=== PATIENT | female | born 1985 | race Caucasian/White ===

== ENCOUNTER 2019-06-20 02:09 | Emergency (ER) | payer OTHER, SELFPAY ==
[2019-06-20 02:17] VITALS: BP 173/102; PULSE 106; RESP 18; TEMP 36.4; O2SAT 98; BMI 49.6
--- NOTE | 2019-06-20 02:31 | ED_ITS ---
Entered by Krupa Valentino, acting as scribe for Darrell Mejia DO Documented by User: Shelbi Kay MD 06/20/19 08:09 HPI - Chest Pain General: Chief Complaint: Chest Pain Stated Complaint: CHEST PAIN/SOB Time Seen by Provider: 06/20/19 02:32 [facility] ED PFSH: Statuses (acute, chronic, etc) shown below reflect problem list status as previously entered and may not be historically accurate Social History Smoking and tobacco status: current every day smoker Course Vital Signs: Vital signs: Vital Signs Temperature 97.6 F 06/20/19 02:17 Pulse Rate 100 06/20/19 07:56 Respiratory Rate 20 H 06/20/19 07:56 Blood Pressure 163/113 06/20/19 03:55 Pulse Oximetry 99 06/20/19 07:56 MDM - Chest Pain MDM Narrative: Medical decision making narrative: Patient presents here with chest pain that is likely anxiety attack. I took patient over from Dr. Mejia and CT scan here is negative for PE. Patient has no signs of pulmonary edema. She feels improved and is well-appearing here. She is stable for discharge is return if worsening. Lab Data: Labs: Lab Results 06/20/19 06/20/19 06/20/19 Range/Units 02:48 02:48 02:48 WBC 11.4 H (4.0-10.0) 10^3/ uL RBC 4.77 (4.1-5.3) 10^6/u L Hgb 9.1 L (11.5-15.3) g/dL Hct 31.8 L (37.0-47.0) % MCV 66.7 L (81-99) fL MCH 19.1 L (28.0-34.0) pg MCHC 28.6 L (30.0-36.0) g/dL RDW 15.9 H (12.1-15.1) % Plt Count 604 H (130-400) 10^3/c mm MPV 9.1 (7.4-10.4) fL Neut % (Auto) 58.4 % Lymph % (Auto) 32.4 % [place] % (Auto) 6.0 % Eos % (Auto) 2.3 % Baso % (Auto) 0.4 % Neut # (Auto) 6.6 (1.8-7.7) 10^3/u L Lymph # (Auto) 3.7 (0.8-4.8) 10^3/u L [place] # (Auto) 0.7 (0.2-0.9) 10^3/u L Eos # (Auto) 0.3 (0.0-0.8) 10^3/u L Baso # (Auto) 0.1 (0.0-0.1) 10^3/u L Nucleated RBC % (a uto) 0 % Nucleated RBCs # 0.0 /100WBC D-Dimer 0.30 (0-0.59) ug/mIFE U Sodium 137 (136-145) mmol/L Potassium 4.0 (3.5-5.1) mmol/L Chloride 100 (98-107) mmol/L Carbon Dioxide 26 (22-29) mmol/L Anion Gap 15.0 (5-19) BUN 9 (6-20) mg/dL Creatinine 0.7 (0.5-0.9) mg/dL GFR Calculation 97.0 (90-130) mL/min Glucose 114 H (74-109) mg/dL Calcium 9.3 (8.5-10.5) mg/dL Total Bilirubin 0.2 (0.15-1.2) mg/dL AST 15 (0-32) U/L ALT 18 (0-33) U/L Alkaline Phosphata se 90 (35-105) IU/L Troponin T Baselin e (0-10) ng/mL Troponin T 120 Min [place] (0-10) ng/mL Delta Troponin T (0-10) ABS# NT-Pro-B Natriuret Pep (0-125) pg/mL Total Protein 7.5 (6.6-8.7) g/dL Albumin 3.5 (3.5-5.2) g/dL Globulin 4.0 (1.3-4.6) g/dL HCG, Qual (Negative) 06/20/19 06/20/19 06/20/19 Range/Units 02:48 02:48 05:06 WBC (4.0-10.0) 10^3/ uL RBC (4.1-5.3) 10^6/u L Hgb (11.5-15.3) g/dL Hct (37.0-47.0) % MCV (81-99) fL MCH (28.0-34.0) pg MCHC (30.0-36.0) g/dL RDW (12.1-15.1) % Plt Count (130-400) 10^3/c mm MPV (7.4-10.4) fL Neut % (Auto) % Lymph % (Auto) % [place] % (Auto) % Eos % (Auto) % Baso % (Auto) % Neut # (Auto) (1.8-7.7) 10^3/u L Lymph # (Auto) (0.8-4.8) 10^3/u L [place] # (Auto) (0.2-0.9) 10^3/u L Eos # (Auto) (0.0-0.8) 10^3/u L Baso # (Auto) (0.0-0.1) 10^3/u L Nucleated RBC % (a uto) % Nucleated RBCs # /100WBC D-Dimer (0-0.59) ug/mIFE U Sodium (136-145) mmol/L Potassium (3.5-5.1) mmol/L Chloride (98-107) mmol/L Carbon Dioxide (22-29) mmol/L Anion Gap (5-19) BUN (6-20) mg/dL Creatinine (0.5-0.9) mg/dL GFR Calculation (90-130) mL/min Glucose (74-109) mg/dL Calcium (8.5-10.5) mg/dL Total Bilirubin (0.15-1.2) mg/dL AST (0-32) U/L ALT (0-33) U/L Alkaline Phosphata se (35-105) IU/L Troponin T Baselin e 6 (0-10) ng/mL Troponin T 120 Min [place] 6.00 (0-10) ng/mL Delta Troponin T 0 (0-10) ABS# NT-Pro-B Natriuret Pep (0-125) pg/mL Total Protein (6.6-8.7) g/dL Albumin (3.5-5.2) g/dL Globulin (1.3-4.6) g/dL HCG, Qual Negative (Negative) 02/02/20 Range/Units 05:06 WBC (4.0-10.0) 10^3/ uL RBC (4.1-5.3) 10^6/u L Hgb (11.5-15.3) g/dL Hct (37.0-47.0) % MCV (81-99) fL MCH (28.0-34.0) pg MCHC (30.0-36.0) g/dL RDW (12.1-15.1) % Plt Count (130-400) 10^3/c mm MPV (7.4-10.4) fL Neut % (Auto) % Lymph % (Auto) % [place] % (Auto) % Eos % (Auto) % Baso % (Auto) % Neut # (Auto) (1.8-7.7) 10^3/u L Lymph # (Auto) (0.8-4.8) 10^3/u L [place] # (Auto) (0.2-0.9) 10^3/u L Eos # (Auto) (0.0-0.8) 10^3/u L Baso # (Auto) (0.0-0.1) 10^3/u L Nucleated RBC % (a uto) % Nucleated RBCs # /100WBC D-Dimer (0-0.59) ug/mIFE U Sodium (136-145) mmol/L Potassium (3.5-5.1) mmol/L Chloride (98-107) mmol/L Carbon Dioxide (22-29) mmol/L Anion Gap (5-19) BUN (6-20) mg/dL Creatinine (0.5-0.9) mg/dL GFR Calculation (90-130) mL/min Glucose (74-109) mg/dL Calcium (8.5-10.5) mg/dL Total Bilirubin (0.15-1.2) mg/dL AST (0-32) U/L ALT (0-33) U/L Alkaline Phosphata se (35-105) IU/L Troponin T Baselin e (0-10) ng/mL Troponin T 120 Min [place] (0-10) ng/mL Delta Troponin T (0-10) ABS# NT-Pro-B Natriuret Pep 78 (0-125) pg/mL Total Protein (6.6-8.7) g/dL Albumin (3.5-5.2) g/dL Globulin (1.3-4.6) g/dL HCG, Qual (Negative) Imaging Data^: CT Chest: Radiologist's impression: PROCEDURE INFORMATION: Exam: CT Angiography Chest With Contrast Exam date and time: 06/20/2019 6:54 AM Age: 34 years old Clinical indication: Shortness of breath; Prior surgery; Surgery type: Gb. Lapband; Patient HX: Central chest pain with SOB. Hypertensive; Additional info: Shob TECHNIQUE: Imaging protocol: Computed tomographic angiography of the chest with intravenous contrast. 3D rendering: MIP and/or 3D reconstructed images were created by the technologist. Total DLP: 855.11 mGy-cm Radiation optimization: All CT scans at this facility use at least one of these dose optimization techniques: automated exposure control; mA and/or kV adjustment per patient size (includes targeted exams where dose is matched to clinical indication); or iterative reconstruction. Contrast material: OMNI 350; Contrast volume: 69 ml; Contrast route: 20G; COMPARISON: CR XR chest 1V portable [id number] 06/20/2019 3:12 AM FINDINGS: Pulmonary arteries: No dissection. No visualized embolism as characterized to the most proximal segmental level. Consider alternative form of imaging if indicated. Aorta: Unremarkable. No aortic aneurysm. No aortic dissection. Lungs: Lungs are well aerated without a focal area of consolidation. Pleural space: Unremarkable. No pneumothorax. No pleural effusion. Heart: No pericardial effusion Mediastinum: Soft tissues of the mediastinum appear unremarkable. Liver: Mild nodularity of the liver is present. Correlate regarding risk factors for hepatocellular disease. Stomach and bowel: Prior gastric banding. Lymph nodes: Unremarkable. No enlarged lymph nodes. Bones/joints: Unremarkable. No acute fracture. Soft tissues: Unremarkable. Other findings: thoracic inlet is unremarkable. CT/CT angio chest PE protcl [id number] IMPRESSION: 1. No dissection. No visualized embolism as characterized to the most proximal segmental level. Consider alternative form of imaging if indicated. 2. Prior gastric banding. 3. Mild nodularity of the liver is present. Correlate regarding risk factors for hepatocellular disease. 4. Lungs are well aerated without a focal area of consolidation. Discharge Plan Discharge Patient Disposition: Home, Self-Care Clinical Impression: Chest pain Qualifiers: Chest pain type: unspecified Qualified Code(s): R07.9 - Chest pain, unspecified Condition: Stable Prescriptions: No Action No Known Home Medications RF: 0 Discharge Orders: Discharge Order (Routine); Ordered 06/20/19 Ordered By: Shelbi Kay Referrals: Varun Astudillo PA [Primary Care Provider] - 4-7 days Discharge Diet: Advance as tolerated Discharge Activity: Resume usual activity Patient Instructions: Chest Pain (ED) Discharge Date/Time: 06/20/19 08:02 Coding Level of Care Code ED Director Pediatric for Chg Fwd Documented by User: Darrell Mejia, 06/20/19 20:07 HPI - Chest Pain General: Chief Complaint: Chest Pain Stated Complaint: CHEST PAIN/SOB Time Seen by Provider: 06/20/19 02:32 Source: patient and family Mode of arrival: ambulatory History of Present Illness: HPI narrative: 34 y/o female presents to the ED with complaint of chest pain. Pt states her pain has subsided upon [place] [facility] [place] Pt states she has hx of anxiety and reports having increased stress in her life recently. Pt reports chest heaviness and SOB during the episode. Pt is just getting over cough, N/V that her children exposed her to. MD complaint: chest pain Onset (ago): hour(s) Timing of current episode: episodic and now resolved Prior episodes: Yes Quality: heaviness Exacerbating factors: stress Context: other (increased stress) Associated symptoms: Reports dyspnea; Deny abdominal pain, fever(s), nausea, palpitations or vomiting Review of Systems Const: Denies: fever or chills Eyes: Denies: change in vision or blurry vision ENMT: Denies: painful swallowing, swelling of lips/tongue, bleeding gums, dental pain, Change in hearing, nose bleeds, post nasal drip or facial/sinus pain Card: Reports: chest pain; Denies: palpitations, edema, swelling of feet/ankles or shortness of breath when lying down Resp: Reports: shortness of breath; Denies: productive cough, non-productive cough or wheezing GI: Denies: abdominal pain, nausea, vomiting, rectal pain, blood in stool or black tarry stool : Denies: painful urination, urinary frequency, urinary urgency or blood in urine Musc: Denies: neck pain, back pain, redness or joint warmth Skin/Breast: Denies: rash, itching or redness Neuro: Denies: headache, dizziness, vertigo, confusion or seizure-like activity Psych: Reports: anxiety and panic attacks; Denies: visual hallucinations or auditory hallucinations PFSH ED PFSH: Statuses (acute, chronic, etc) shown below reflect problem list status as previously entered and may not be historically accurate Social History Smoking and tobacco status: current every day smoker Physical Exam Const: GENERAL APPEARANCE: well developed ORIENTATION/CONSCIOUSNESS: Yes oriented to person, Yes oriented to place and Yes oriented to time HENMT: COMMON NORMALS: normocephalic, external ears normal and external nose normal HEAD & SCALP: normocephalic; no scalp tenderness FACE & SINUS: normal facial exam NOSE: external nose normal and no nasal discharge EXTERNAL EAR: Yes external ears normal MOUTH: tongue normal TEETH & GINGIVA: no abnormal tooth and associated gingiva THROAT: posterior oropharynx normal; no peritonsillar mass Eye: COMMON NORMALS: PERRL, EOMs intact bilaterally and conjunctivae normal EYELID: eyelids normal CONJUNCTIVA: Yes conjunctivae normal PUPIL: Yes PERRL Neck/C-Spine: COMMON NORMALS: full ROM GENERAL: No tracheal deviation CERVICAL SPINE: Yes normal cervical lordosis and No cervical spine tenderness Chest: CHEST: Yes tenderness clavicle on the left Resp: COMMON NORMALS: clear to auscultation bilaterally EFFORT & INSPECTION: No tachypneic, No respiratory distress, No retractions, No uses accessory muscles and No tracheal deviation AUSCULTATION: clear to auscultation bilaterally, no rhonchi, no wheezes and lung sounds not diminished Cardio: RATE: tachycardic HEART SOUNDS: no murmurs PERIPHERAL PULSES: radial pulses present GI: INSPECTION: No abdominal distension AUSCULTATION: No hyperactive bowel sounds and No hypoactive bowel sounds PALPATION: No guarding and No rigid PERCUSSION: no dullness to percussion and no tympanic to percussion : COMMON NORMALS: Yes no CVA tenderness BLADDER/KIDNEY EXAM: Yes no CVA tenderness Back/Pelvis: COMMON NORMALS: no CVA tenderness Neuro: SENSORIUM/ORIENTATION: Yes oriented to person, Yes oriented to place and Yes oriented to time Psych: COMMON NORMALS: mental status grossly normal Skin: COMMON NORMALS: no rashes or lesions noted GENERAL SKIN EXAM: no rashes or lesions noted Course ED course: 34-year-old female presents with significant chest discomfort. She was given a milligram of Ativan as she was anxious. Her chest discomfort was taken away, but she was mildly sedated, and became mildly apneic following. She was placed on oxygen for a couple of hours with improvement in her mental status and apnea as the Ativan wore off. Because of persistent tachycardia, chest discomfort, and hypoxia, CTA was ordered. Because of her body habitus, chest x- ray was inconclusive. She was checked out to Dr. Kay at shift change for results. Vital Signs: Vital signs: Vital Signs Temperature 97.6 F 06/20/19 02:17 Pulse Rate 100 06/20/19 07:56 Respiratory Rate 20 H 06/20/19 07:56 Blood Pressure 163/113 06/20/19 03:55 Pulse Oximetry 99 06/20/19 07:56 MDM - Chest Pain Lab Data: Labs: Lab Results 06/20/19 06/20/19 06/20/19 Range/Units 02:48 02:48 02:48 WBC 11.4 H (4.0-10.0) 10^3/ uL RBC 4.77 (4.1-5.3) 10^6/u L Hgb 9.1 L (11.5-15.3) g/dL Hct 31.8 L (37.0-47.0) % MCV 66.7 L (81-99) fL MCH 19.1 L (28.0-34.0) pg MCHC 28.6 L (30.0-36.0) g/dL RDW 15.9 H (12.1-15.1) % Plt Count 604 H (130-400) 10^3/c mm MPV 9.1 (7.4-10.4) fL Neut % (Auto) 58.4 % Lymph % (Auto) 32.4 % [place] % (Auto) 6.0 % Eos % (Auto) 2.3 % Baso % (Auto) 0.4 % Neut # (Auto) 6.6 (1.8-7.7) 10^3/u L Lymph # (Auto) 3.7 (0.8-4.8) 10^3/u L [place] # (Auto) 0.7 (0.2-0.9) 10^3/u L Eos # (Auto) 0.3 (0.0-0.8) 10^3/u L Baso # (Auto) 0.1 (0.0-0.1) 10^3/u L Nucleated RBC % (a uto) 0 % Nucleated RBCs # 0.0 /100WBC D-Dimer 0.30 (0-0.59) ug/mIFE U Sodium 137 (136-145) mmol/L Potassium 4.0 (3.5-5.1) mmol/L Chloride 100 (98-107) mmol/L Carbon Dioxide 26 (22-29) mmol/L Anion Gap 15.0 (5-19) BUN 9 (6-20) mg/dL Creatinine 0.7 (0.5-0.9) mg/dL GFR Calculation 97.0 (90-130) mL/min Glucose 114 H (74-109) mg/dL Calcium 9.3 (8.5-10.5) mg/dL Total Bilirubin 0.2 (0.15-1.2) mg/dL AST 15 (0-32) U/L ALT 18 (0-33) U/L Alkaline Phosphata se 90 (35-105) IU/L Troponin T Baselin e (0-10) ng/mL Troponin T 120 Min [place] (0-10) ng/mL Delta Troponin T (0-10) ABS# NT-Pro-B Natriuret Pep (0-125) pg/mL Total Protein 7.5 (6.6-8.7) g/dL Albumin 3.5 (3.5-5.2) g/dL Globulin 4.0 (1.3-4.6) g/dL HCG, Qual (Negative) 06/20/19 06/20/19 06/20/19 Range/Units 02:48 02:48 05:06 WBC (4.0-10.0) 10^3/ uL RBC (4.1-5.3) 10^6/u L Hgb (11.5-15.3) g/dL Hct (37.0-47.0) % MCV (81-99) fL MCH (28.0-34.0) pg MCHC (30.0-36.0) g/dL RDW (12.1-15.1) % Plt Count (130-400) 10^3/c mm MPV (7.4-10.4) fL Neut % (Auto) % Lymph % (Auto) % [place] % (Auto) % Eos % (Auto) % Baso % (Auto) % Neut # (Auto) (1.8-7.7) 10^3/u L Lymph # (Auto) (0.8-4.8) 10^3/u L [place] # (Auto) (0.2-0.9) 10^3/u L Eos # (Auto) (0.0-0.8) 10^3/u L Baso # (Auto) (0.0-0.1) 10^3/u L Nucleated RBC % (a uto) % Nucleated RBCs # /100WBC D-Dimer (0-0.59) ug/mIFE U Sodium (136-145) mmol/L Potassium (3.5-5.1) mmol/L Chloride (98-107) mmol/L Carbon Dioxide (22-29) mmol/L Anion Gap (5-19) BUN (6-20) mg/dL Creatinine (0.5-0.9) mg/dL GFR Calculation (90-130) mL/min Glucose (74-109) mg/dL Calcium (8.5-10.5) mg/dL Total Bilirubin (0.15-1.2) mg/dL AST (0-32) U/L ALT (0-33) U/L Alkaline Phosphata se (35-105) IU/L Troponin T Baselin e 6 (0-10) ng/mL Troponin T 120 Min [place] 6.00 (0-10) ng/mL Delta Troponin T 0 (0-10) ABS# NT-Pro-B Natriuret Pep (0-125) pg/mL Total Protein (6.6-8.7) g/dL Albumin (3.5-5.2) g/dL Globulin (1.3-4.6) g/dL HCG, Qual Negative (Negative) 06/20/19 Range/Units 05:06 WBC (4.0-10.0) 10^3/ uL RBC (4.1-5.3) 10^6/u L Hgb (11.5-15.3) g/dL Hct (37.0-47.0) % MCV (81-99) fL MCH (28.0-34.0) pg MCHC (30.0-36.0) g/dL RDW (12.1-15.1) % Plt Count (130-400) 10^3/c mm MPV (7.4-10.4) fL Neut % (Auto) % Lymph % (Auto) % [place] % (Auto) % Eos % (Auto) % Baso % (Auto) % Neut # (Auto) (1.8-7.7) 10^3/u L Lymph # (Auto) (0.8-4.8) 10^3/u L [place] # (Auto) (0.2-0.9) 10^3/u L Eos # (Auto) (0.0-0.8) 10^3/u L Baso # (Auto) (0.0-0.1) 10^3/u L Nucleated RBC % (a uto) % Nucleated RBCs # /100WBC D-Dimer (0-0.59) ug/mIFE U Sodium (136-145) mmol/L Potassium (3.5-5.1) mmol/L Chloride (98-107) mmol/L Carbon Dioxide (22-29) mmol/L Anion Gap (5-19) BUN (6-20) mg/dL Creatinine (0.5-0.9) mg/dL GFR Calculation (90-130) mL/min Glucose (74-109) mg/dL Calcium (8.5-10.5) mg/dL Total Bilirubin (0.15-1.2) mg/dL AST (0-32) U/L ALT (0-33) U/L Alkaline Phosphata se (35-105) IU/L Troponin T Baselin e (0-10) ng/mL Troponin T 120 Min [place] (0-10) ng/mL Delta Troponin T (0-10) ABS# NT-Pro-B Natriuret Pep 78 (0-125) pg/mL Total Protein (6.6-8.7) g/dL Albumin (3.5-5.2) g/dL Globulin (1.3-4.6) g/dL HCG, Qual (Negative) Discharge Plan Discharge Patient Disposition: Home, Self-Care Clinical Impression: Chest pain Qualifiers: Chest pain type: unspecified Qualified Code(s): R07.9 - Chest pain, unspecified Condition: Stable Prescriptions: No Action No Known Home Medications RF: 0 Discharge Orders: Discharge Order (Routine); Ordered 06/20/19 Ordered By: Shelbi Kay Referrals: Varun Astudillo PA [Primary Care Provider] - 4-7 days Discharge Diet: Advance as tolerated Discharge Activity: Resume usual activity Patient Instructions: Chest Pain (ED) Discharge Date/Time: 06/20/19 08:02 Coding Level of Care Code ED Director Pediatric for g Alea The documentation recorded by the Chicho goldberg Ashley, accurately reflects the service I personally performed and the decisions made by Roberto berger Jeremy John, DO Jun 20, 2019 02:09
--- NOTE | 2019-06-20 02:42 | ECG_ITS ---
Measurements Intervals [place] Rate: 102 P: 38 UT: 151 QRS: 21 QRSD: 78 T: 7 QT: 312 QTc: 408 SINUS TACHYCARDIA ABNORMAL RHYTHM ECG No previous ECG available for comparison Electronically Signed On 06-20-2019 15:43:23 MACHINE TOOL BUILDER by Corine Persaud M.D. [id number] f
--- NOTE | 2019-06-20 02:42 | XRR_ITS ---
PROCEDURE INFORMATION: Exam: XR Chest, 1 View Exam date and time: 06/20/2019 3:21 AM Age: 34 years old Clinical indication: Chest pain; Prior surgery; Surgery date: 6+ months; Surgery type: Lap band, gb; Additional info: Cp TECHNIQUE: Imaging protocol: XR of the chest Views: 1 view. COMPARISON: No relevant prior studies available. FINDINGS: Lungs: Lungs are well aerated without a focal area of consolidation. Pleural space: Unremarkable. No pleural effusion. No pneumothorax. Heart/Mediastinum: Cardiac silhouette is enlarged. Bones/joints: Unremarkable. XR/XR chest 1V portable [id number] IMPRESSION: Lungs are well aerated without a focal area of consolidation.
[2019-06-20 03:00] LABS: Basophils # 0.1 10^3/uL (0.0-0.1); Basophils % 0.4 %; Eosinophils # 0.3 10^3/uL (0.0-0.8); Eosinophils % 2.3 %; Hematocrit 31.8 % (37.0-47.0); Hemoglobin 9.1 g/dL (11.5-15.3); Lymphocytes # 3.7 10^3/uL (0.8-4.8); Lymphocytes % 32.4 %; Mean Corpuscular HGB Conc 28.6 g/dL (30.0-36.0); Mean Corpuscular Hemoglobin 19.1 pg (28.0-34.0); Mean Corpuscular Volume 66.7 fL (81-99); Mean Platelet Volume 9.1 fL (7.4-10.4); Monocytes # 0.7 10^3/uL (0.2-0.9); Neutrophils # 6.6 10^3/uL (1.8-7.7); Neutrophils % 58.4 %; Nucleated Red Blood Cells % 0 %; Platelet Count 604 10^3/cmm (130-400); Red Blood Count 4.77 10^6/uL (4.1-5.3); Red Cell Distribution Width 15.9 % (12.1-15.1); White Blood Count 11.4 10^3/uL (4.0-10.0)
[2019-06-20] MEDS: LORazepam 2 mg/mL INJ 1 mL 1 MG IVP (03:07)
[2019-06-20 03:21] LABS: HCG, Serum Qual Negative (Negative)
[2019-06-20 03:34] LABS: Alanine Aminotransferase 18 U/L (0-33); Albumin Level 3.5 g/dL (3.5-5.2); Alkaline Phosphatase 90 IU/L (35-105); Aspartate Amino Transferase 15 U/L (0-32); Blood Urea Nitrogen 9 mg/dL (6-20); Calcium 9.3 mg/dL (8.5-10.5); Carbon Dioxide 26 mmol/L (22-29); Chloride 100 mmol/L (98-107); Creatinine Clr Calc Pharmacy 149.7987; Glucose 114 mg/dL (74-109); Sodium 137 mmol/L (136-145); Total Bilirubin 0.2 mg/dL (0.15-1.2); Total Protein 7.5 g/dL (6.6-8.7)
[2019-06-20 03:37] LABS: Troponin(5th) Baseline 6 ng/mL (0-10)
[2019-06-20 03:55] VITALS: BP 163/113; PULSE 103; RESP 22
--- NOTE | 2019-06-20 04:42 | ECG_ITS ---
Measurements Intervals [place] Rate: 103 P: 44 WV: 136 QRS: 30 QRSD: 84 T: -3 QT: 330 QTc: 434 SINUS TACHYCARDIA NONSPECIFIC T-WAVE ABNORMALITY ABNORMAL RHYTHM ECG No previous ECG available for comparison Electronically Signed On 06-20-2019 20:31:49 [employer]EL[employer] RESEARCH SCIENTIST by Corine Persaud M.D. [id number] f
[2019-06-20 05:39] LABS: Troponin 5 2HR Delta 0 ABS# (0-10)
--- NOTE | 2019-06-20 06:09 | CTR_ITS ---
PROCEDURE INFORMATION: Exam: CT Angiography Chest With Contrast Exam date and time: 06/20/2019 6:54 AM Age: 34 years old Clinical indication: Shortness of breath; Prior surgery; Surgery type: Gb. Lapband; Patient HX: Central chest pain with SOB. Hypertensive; Additional info: Shob TECHNIQUE: Imaging protocol: Computed tomographic angiography of the chest with intravenous contrast. 3D rendering: MIP and/or 3D reconstructed images were created by the technologist. Total DLP: 855.11 mGy-cm Radiation optimization: All CT scans at this facility use at least one of these dose optimization techniques: automated exposure control; mA and/or kV adjustment per patient size (includes targeted exams where dose is matched to clinical indication); or iterative reconstruction. Contrast material: OMNI 350; Contrast volume: 69 ml; Contrast route: 20G; COMPARISON: CR XR chest 1V portable [id number] 06/20/2019 3:12 AM FINDINGS: Pulmonary arteries: No dissection. No visualized embolism as characterized to the most proximal segmental level. Consider alternative form of imaging if indicated. Aorta: Unremarkable. No aortic aneurysm. No aortic dissection. Lungs: Lungs are well aerated without a focal area of consolidation. Pleural space: Unremarkable. No pneumothorax. No pleural effusion. Heart: No pericardial effusion Mediastinum: Soft tissues of the mediastinum appear unremarkable. Liver: Mild nodularity of the liver is present. Correlate regarding risk factors for hepatocellular disease. Stomach and bowel: Prior gastric banding. Lymph nodes: Unremarkable. No enlarged lymph nodes. Bones/joints: Unremarkable. No acute fracture. Soft tissues: Unremarkable. Other findings: thoracic inlet is unremarkable. CT/CT angio chest PE protcl [id number] IMPRESSION: 1. No dissection. No visualized embolism as characterized to the most proximal segmental level. Consider alternative form of imaging if indicated. 2. Prior gastric banding. 3. Mild nodularity of the liver is present. Correlate regarding risk factors for hepatocellular disease. 4. Lungs are well aerated without a focal area of consolidation. Radiation Dose CTDIVOL = (mGy): DLP = 855.11 (mGy-cm)
[2019-06-20 06:20] LABS: NT Pro B Type Natriuretic Pept 78 pg/mL (0-125)
[2019-06-20] MEDS: iohexol 350 mg/mL 100 mL Btl IV (07:07)
[2019-06-20 07:56] VITALS: PULSE 100; RESP 20; O2SAT 99
== END 2019-06-20 08:02 | disposition home or self-care (01) ==
PROVIDERS: Emergency Medicine; Emergency Provider Emergency Medicine; PCP Emergency Medicine
DX: R07.9 Chest pain, unspecified (principal); F17.210 Nicotine dependence, cigarettes, uncomplicated
CPT/HCPCS: 71045; 71275; 80053; 83880; 84484; 84703; 85025; 85378; 93005; 96374; 99283; 99284; J2060; Q9967

== ENCOUNTER 2021-05-19 16:41 | Emergency (ER) | payer MEDICAID, SELFPAY ==
[2021-05-19 17:22] VITALS: BP 148/92; PULSE 112; RESP 16; TEMP 37.6; O2SAT 99
--- NOTE | 2021-05-19 21:47 | USR_ITS ---
PROCEDURE INFORMATION: Exam: US Duplex Artery or Vein of the Abdominal and/or Reproductive Organs, Limited Exam date and time: 05/19/2021 9:47 PM Age: 36 years old Clinical indication: Menstruation abnormalities; Other: Irregular and heavy vag bleed since mar 20, 2021 nonstop; Pelvic pain and other: Radiating to the back; Patient HX: Morbid obesity. G5-p1-a4-l1; Additional info: Vag bleeding TECHNIQUE: Imaging protocol: Real-time duplex ultrasound scan of the arterial or venous flow of the abdomen and/or reproductive organs, with color Doppler flow and spectral waveform analysis with image documentation. Exam focused on the region of clinical interest. Duplex images were received to evaluate vascular conditions. COMPARISON: US pelvic with transvaginal 10/19/2015 11:09 PM FINDINGS: The uterus measures 9.6 cm in length. Suspect a possible fibroid involving the anterior uterus, measuring 29 x 21 x 27 mm. There is no intrauterine fluid. Endometrial thickness is 7.0 mm. There is no free pelvic fluid. The right ovary is enlarged, measuring 65 x 41 x 63 mm, estimated volume 86.8 cc. Relatively simple appearing cyst involving the right ovary, measuring up to about 5 cm in diameter. While a physiologic cyst is still possible, other etiologies are not excluded, including ovarian neoplasm. Appropriate gynecological workup/follow-up recommended. On the provided images, blood flow cannot be definitely detected within the right ovary with color or spectral Doppler imaging. However, the technologist notes that this may be technical in nature, due to the position of the right ovary and patient body habitus. Therefore, ovarian torsion cannot be excluded. Ultrasound is not always definitive in diagnosising/excluding ovarian torsion, so clinical judgment will still be needed. The left ovary is upper normal/mildly prominent, measuring 48 x 28 x 33 mm, estimated volume 23.3 cc. The left ovary otherwise appears essentially unremarkable. Arterial blood flow detected within the left ovary with color and spectral Doppler imaging. The urinary bladder was not completely evaluated/imaged at this time. Endovaginal scanning provided better visualization/evaluation of the endometrium and ovaries/adnexal regions, as discussed above. PROCEDURE INFORMATION: Exam: US Pelvis Complete, Transabdominal and US Pelvis, Transvaginal Exam date and time: 05/19/2021 9:47 PM Age: 36 years old Clinical indication: Menstruation abnormalities; Other: Irregular and heavy vag bleed since mar 20, 2021 nonstop; Pelvic pain and other: Radiating to the back; Patient HX: Morbid obesity. G5-p1-a4-l1; Additional info: Vag bleeding TECHNIQUE: Imaging protocol: Real-time transabdominal and transvaginal pelvic ultrasound (complete) with image documentation. Transvaginal imaging was used for better evaluation of the endometrium, adnexa, and/or cervix. COMPARISON: US pelvic with transvaginal 10/19/2015 11:09 PM FINDINGS: The uterus measures 9.6 cm in length. Suspect a possible fibroid involving the anterior uterus, measuring 29 x 21 x 27 mm. There is no intrauterine fluid. Endometrial thickness is 7.0 mm. There is no free pelvic fluid. The right ovary is enlarged, measuring 65 x 41 x 63 mm, estimated volume 86.8 cc. Relatively simple appearing cyst involving the right ovary, measuring up to about 5 cm in diameter. While a physiologic cyst is still possible, other etiologies are not excluded, including ovarian neoplasm. Appropriate gynecological workup/follow-up recommended. On the provided images, blood flow cannot be definitely detected within the right ovary with color or spectral Doppler imaging. However, the technologist notes that this may be technical in nature, due to the position of the right ovary and patient body habitus. Therefore, ovarian torsion cannot be excluded. Ultrasound is not always definitive in diagnosising/excluding ovarian torsion, so clinical judgment will still be needed. The left ovary is upper normal/mildly prominent, measuring 48 x 28 x 33 mm, estimated volume 23.3 cc. The left ovary otherwise appears essentially unremarkable. Arterial blood flow detected within the left ovary with color and spectral Doppler imaging. The urinary bladder was not completely evaluated/imaged at this time. Endovaginal scanning provided better visualization/evaluation of the endometrium and ovaries/adnexal regions, as discussed above. US/US transvaginal [id number] IMPRESSION: 1. 5 cm right ovarian cyst, please see above discussion. 2. Blood flow could not be detected in the right ovary at this time, although this may be technical in nature. See above discussion. 3. Left ovary upper normal/mildly prominent in size. No dominant left ovarian cyst or mass. Blood flow detected in the left ovary. 4. Suspected uterine fibroid, details above. 5. No free pelvic fluid. 6. Other details/findings discussed above.
--- NOTE | 2021-05-19 22:08 | ED_ITS ---
Documented by User: Kj Mccain MD 05/19/21 23:00 HPI - General Adult General: Chief complaint: Vaginal Bleeding Stated complaint: vaginal bleed Time Seen by Provider: 05/19/21 21:44 History of Present Illness: HPI narrative: Patient is a 36-year-old female with a history of heavy vaginal bleeding presents emergency room with 4 days of worsening bleed after starting progesterone pills. Patient tells me for the last 3 months, patient has had daily vaginal bleeding. Around 4 days ago by patient was started on progesterone by her PCP. Patient initially took 200 mg 3 days ago followed by 400 mg for the last 2 days. Since then, patient has noticed significant worsening bleeding. Earlier today, patient reported going through for past 1 hour. Patient noticed passage of clots. Patient denies any anticoagulation use. Denies any ibuprofen or antiplatelet use. Patient reports mild nausea denies vomiting. Denies any abdominal pain, chest pain, shortness breath, and palpitation. Patient reports that since 2 days ago, she has become increasingly lightheaded, fatigued and unable to perform her daily activities. Onset:4 days ago Duration:4 days Location:home Severity:moderate Review of Systems Narrative: Constitutional: No fever, no chills. HEENT: No vision changes CV: No chest pain, no palpitations PULM: no cough, no dyspnea. GI: No abdominal pain, no N/V/D. : No dysuria, +vaginal bleeding MSKEL: No muscle pain SKIN: No new rashes, no lesions. NEURO: No headache, no focal weakness. +light-headedness HEME: No visible bruises PSYCH: Normal mood PFSH ED PFSH: Social History Smoking and tobacco status: current every day smoker Physical Exam Narrative: EXAM NARRATIVE: Head: Atraumatic Eyes: PERRL, conjunctiva without injection, pallor conjunctiva ENT: Mucous membrane moist NECK: Supple, ROM intact LUNGS: LCTAB, no crackles/rhonchi CV: Sinus tachycardia ABDOMEN: Soft, no focal TTP. NO guarding rebound, guarding, rigidity. No CVA tenderness to percussion. Neg Aguirre/Neg McBurney's point tenderness, no suprabupic tenderness to palpation. EXTREMITY: Normal ROM SKIN: No rash or erythema NEURO: Awake and alert, no focal motor deficits PSYCH: Normal mood and affect : Exam supervised by Antony RN: External genitalia wnl. No erythema around cervical os, os closed, no discharge, + blood in the vaginal vault, no source of active bleeding, cervical os appears to be closed Course Vital Signs: Vital signs: Vital Signs Temperature 99.6 F 05/19/21 17:22 Pulse Rate 112 H 05/19/21 17:22 Respiratory Rate 16 05/19/21 17:22 Blood Pressure 148/92 05/19/21 17:22 Pulse Oximetry 99 05/19/21 17:22 MDM - General Adult MDM Narrative: Medical decision making narrative: 36-year-old female with history of menorrhagia presenting to emergency room with heavy bleeding for last 4 days but being on progesterone pills. Patient on arrival appears to be pale mildly tachycardic to the 110s. Pelvic exam showed mild blood in the vaginal vault without any active source of pooling or extravasation. Work-up: CBC, BMP, type and screen, PT/PTT INR, transvaginal ultrasound, hCG Intervention: IVF Case signed out to Dr. Kay pending blood work and US evaluation Lab Data: Labs: Lab Results 05/19/21 05/19/21 05/19/21 23:30 23:30 23:30 WBC 18.7 10^3/uL H 10 ^3/uL (4.0-10.0) RBC 4.74 10^6/uL 10^6 /uL (4.1-5.3) Hgb 8.8 g/dL L g/dL (11.5-15.3) Hct 31.2 % L % (37.0-47.0) MCV 65.8 fl L fl (81-99) MCH 18.6 pg L pg (28.0-34.0) MCHC 28.2 g/dL L g/dL (30.0-36.0) RDW 16.6 % H % (12.1-15.1) Plt Count 698 10^3/cmm H 10 ^3/cmm (130-400) MPV 9.0 fL fL (7.4-10.4) Neut % (Auto) 72.2 % % Lymph % (Auto) 20.8 % % [place] % (Auto) 3.7 % % Eos % (Auto) 2.0 % % Baso % (Auto) 0.3 % % Neut # (Auto) 13.49 10^3/uL H 1 0^3/uL (1.8-7.7) Lymph # (Auto) 3.9 10^3/uL 10^3/ uL (0.8-4.8) [place] # (Auto) 0.7 10^3/uL 10^3/ uL (0.2-0.9) Eos # (Auto) 0.4 10^3/uL 10^3/ uL (0.0-0.8) Baso # (Auto) 0.1 10^3/uL 10^3/ uL (0.0-0.1) Nucleated RBC % (a uto) 0.1 % % Nucleated RBCs # 0.0 /100WBC /100W BC PT 14.80 SECONDS SEC ONDS (12.1-14.9) INR 1.13 (0.8-1.2) APTT 32.8 SECONDS SECO NDS (23.9-36.7) Sodium 133 mmol/L L mmol /L (136-145) Potassium 3.9 mmol/L mmol/L (3.5-5.1) Chloride 96 mmol/L L mmol/ L (98-107) Carbon Dioxide 24 mmol/L mmol/L (22-29) Anion Gap 16.9 (5-19) BUN 7 mg/dL mg/dL (6-20) Creatinine 0.6 mg/dL mg/dL (0.5-0.9) GFR Calculation 114.4 mL/min mL/m in (90-130) Glucose 136 mg/dL H mg/dL (65-115) Calculated Osmolal ity 276 mOsm/kg L mOs m/kg (285-295) Calcium 8.2 mg/dL L mg/dL (8.5-10.5) Total Bilirubin 0.3 mg/dL mg/dL (0.15-1.2) AST 16 U/L U/L (0-32) ALT 14 U/L U/L (0-33) Alkaline Phosphata se 112 IU/L H IU/L (35-105) Total Protein 7.6 g/dL g/dL (6.6-8.7) Albumin 3.6 g/dL g/dL (3.5-5.2) Globulin 4.0 g/dL g/dL (1.3-4.6) Blood Type Rho(D) Type Antibody Screen 05/19/21 23:30 WBC RBC Hgb Hct MCV MCH MCHC RDW Plt Count MPV Neut % (Auto) Lymph % (Auto) [place] % (Auto) Eos % (Auto) Baso % (Auto) Neut # (Auto) Lymph # (Auto) [place] # (Auto) Eos # (Auto) Baso # (Auto) Nucleated RBC % (a uto) Nucleated RBCs # PT INR APTT Sodium Potassium Chloride Carbon Dioxide Anion Gap BUN Creatinine GFR Calculation Glucose Calculated Osmolal ity Calcium Total Bilirubin AST ALT Alkaline Phosphata se Total Protein Albumin Globulin Blood Type A Positive Rho(D) Type Positive Antibody Screen Negative Discharge Plan Discharge Patient Disposition: Home Clinical Impression: Abnormal vaginal bleeding Ovarian cyst Qualifiers: Laterality: right Qualified Code(s): N83.201 - Unspecified ovarian cyst, right side Condition: Stable Prescriptions: New Reglan 10 mg tablet 10 mg PO Q6H PRN (Reason: nausea and vomiting) Qty: 20 RF: 0 Discharge Orders: Discharge ED (Routine); Ordered 05/20/21 Ordered By: Shelbi Kay Referrals: Monique Cloud MD [Physician] - 1-3 days Discharge Diet: Advance as tolerated Discharge Activity: Resume usual activity Patient Instructions: Abnormal (Dysfunctional) Uterine Bleeding (ED) Coding Level of Care Code ED Construction Services Technician for Chg Fwd Documented by User: Shelbi Kay MD 05/20/21 01:52 HPI - General Adult General: Chief complaint: Vaginal Bleeding Stated complaint: vaginal bleed Time Seen by Provider: 05/19/21 21:44 PFSH ED PFSH: Social History Smoking and tobacco status: current every day smoker Course Vital Signs: Vital signs: Vital Signs Temperature 99.6 F 05/19/21 17:22 Pulse Rate 112 H 05/19/21 17:22 Respiratory Rate 16 05/19/21 17:22 Blood Pressure 148/92 05/19/21 17:22 Pulse Oximetry 99 05/19/21 17:22 MDM - General Adult MDM Narrative: Medical decision making narrative: Patient presents here with vaginal bleeding. Pelvis exam performed by Dr. Mccain bleeding was minimal at that time her hemoglobin here is stable her blood pressures been stable as well. CT and ultrasound does show an ovarian cyst on the right she is to continue her estrogen we will get her follow-up with gynecology she is return if worsening she understands agrees to plan. Lab Data: Labs: Lab Results 05/19/21 05/19/21 05/19/21 23:30 23:30 23:30 WBC 18.7 10^3/uL H 10 ^3/uL (4.0-10.0) RBC 4.74 10^6/uL 10^6 /uL (4.1-5.3) Hgb 8.8 g/dL L g/dL (11.5-15.3) Hct 31.2 % L % (37.0-47.0) MCV 65.8 fl L fl (81-99) MCH 18.6 pg L pg (28.0-34.0) MCHC 28.2 g/dL L g/dL (30.0-36.0) RDW 16.6 % H % (12.1-15.1) Plt Count 698 10^3/cmm H 10 ^3/cmm (130-400) MPV 9.0 fL fL (7.4-10.4) Neut % (Auto) 72.2 % % Lymph % (Auto) 20.8 % % [place] % (Auto) 3.7 % % Eos % (Auto) 2.0 % % Baso % (Auto) 0.3 % % Neut # (Auto) 13.49 10^3/uL H 1 0^3/uL (1.8-7.7) Lymph # (Auto) 3.9 10^3/uL 10^3/ uL (0.8-4.8) [place] # (Auto) 0.7 10^3/uL 10^3/ uL (0.2-0.9) Eos # (Auto) 0.4 10^3/uL 10^3/ uL (0.0-0.8) Baso # (Auto) 0.1 10^3/uL 10^3/ uL (0.0-0.1) Nucleated RBC % (a uto) 0.1 % % Nucleated RBCs # 0.0 /100WBC /100W BC PT 14.80 SECONDS SEC ONDS (12.1-14.9) INR 1.13 (0.8-1.2) APTT 32.8 SECONDS SECO NDS (23.9-36.7) Sodium 133 mmol/L L mmol /L (136-145) Potassium 3.9 mmol/L mmol/L (3.5-5.1) Chloride 96 mmol/L L mmol/ L (98-107) Carbon Dioxide 24 mmol/L mmol/L (22-29) Anion Gap 16.9 (5-19) BUN 7 mg/dL mg/dL (6-20) Creatinine 0.6 mg/dL mg/dL (0.5-0.9) GFR Calculation 114.4 mL/min mL/m in (90-130) Glucose 136 mg/dL H mg/dL (65-115) Calculated Osmolal ity 276 mOsm/kg L mOs m/kg (285-295) Calcium 8.2 mg/dL L mg/dL (8.5-10.5) Total Bilirubin 0.3 mg/dL mg/dL (0.15-1.2) AST 16 U/L U/L (0-32) ALT 14 U/L U/L (0-33) Alkaline Phosphata se 112 IU/L H IU/L (35-105) Total Protein 7.6 g/dL g/dL (6.6-8.7) Albumin 3.6 g/dL g/dL (3.5-5.2) Globulin 4.0 g/dL g/dL (1.3-4.6) Blood Type Rho(D) Type Antibody Screen 05/19/21 23:30 WBC RBC Hgb Hct MCV MCH MCHC RDW Plt Count MPV Neut % (Auto) Lymph % (Auto) [place] % (Auto) Eos % (Auto) Baso % (Auto) Neut # (Auto) Lymph # (Auto) [place] # (Auto) Eos # (Auto) Baso # (Auto) Nucleated RBC % (a uto) Nucleated RBCs # PT INR APTT Sodium Potassium Chloride Carbon Dioxide Anion Gap BUN Creatinine GFR Calculation Glucose Calculated Osmolal ity Calcium Total Bilirubin AST ALT Alkaline Phosphata se Total Protein Albumin Globulin Blood Type A Positive Rho(D) Type Positive Antibody Screen Negative Imaging Data^: CT Abd/Pel: Radiologist's impression: [employer] [place] [place] [address] CT Scan Report Signed Patient: Gela Waldrop Unit #: [id number] : 1985 Age/Sex: 36 / F ADM Date: 05/19/21 Loc: ER Room/Bed: Attending Dr: Ordering Provider/Ordering MD: Shelbi Kay MD Date of Service: 05/20/21 Procedure(s): CT abdomen pelvis w con* [id number] Accession Number(s): [id number] Report Number: [id number] PROCEDURE INFORMATION: Exam: CT Abdomen And Pelvis With Contrast Exam date and time: 05/20/2021 12:00 AM Age: 36 years old Clinical indication: Prior surgery; Surgery type: Gb. Lap band. ; Patient HX: Heavy vaginal bleeding x 4 days. Elevated wbc. ; Additional info: Abd pain TECHNIQUE: Imaging protocol: Computed tomography of the abdomen and pelvis with contrast. Radiation optimization: All CT scans at this facility use at least one of these dose optimization techniques: automated exposure control; mA and/or kV adjustment per patient size (includes targeted exams where dose is matched to clinical indication); or iterative reconstruction. Contrast material: OMNI 300; Contrast volume: 95 ml; Contrast route: INTRAVENOUS (IV); COMPARISON: CT abdomen pelvis w con* [id number] 05/15/2019 11:55 AM RADIATION DOSE METRICS: Total DLP (mGy-cm): 1875.21 FINDINGS: Lungs: The lung bases are clear. Liver: There is fatty infiltration of the liver. The liver appears somewhat enlarged, with right lobe length of about 26 cm. No definite/significant focal hepatic abnormality. Gallbladder and bile ducts: Prior cholecystectomy, no significant biliary tree dilation. Pancreas: Unremarkable. Spleen: The spleen appears mildly enlarged, with a length of about 15 cm. No definite/significant focal splenic abnormality or perisplenic fluid. Adrenal glands: Unremarkable. Kidneys and ureters: Unremarkable. Stomach and bowel: No significant bowel distention. There are no CT findings to strongly suggest diverticulitis. Appendix: The appendix is visualized and appears normal. Intraperitoneal space: No free intraperitoneal air, or ascites. Vasculature: No evidence for abdominal aortic aneurysm. Lymph nodes: Several borderline/mildly prominent retroperitoneal/periaortic and pelvic/common iliac chain lymph nodes bilaterally, a nonspecific appearance. The appearance is similar to the prior exam. This may represent reactive lymphadenopathy. Followup may be useful to exclude progression, especially if there is concern for metastatic disease or lymphoma. Urinary bladder: The urinary bladder is almost empty, limiting evaluation. Reproductive: 68 x 57 x 62 mm right adnexal/ovarian cyst. This is larger than expected for a physiologic cyst, although that is not entirely excluded. Other etiologies should be considered/excluded, including ovarian neoplasm such as cystadenoma or cystadenocarcinoma. Appropriate gynecological workup/follow-up recommended. The left ovary appears essentially unremarkable by CT. No cul-de-sac fluid. Bones/joints: No significant acute finding. Soft tissues: No significant acute finding. Other findings: Evidence for prior laparoscopic banding surgery. CT/CT abdomen pelvis w con* [id number] IMPRESSION: 1. 68 x 57 x 62 mm right adnexal/ovarian cyst, see above discussion. Appropriate gynecological workup/follow-up recommended to exclude ovarian neoplasm. 2. Normal appendix. 3. No free air or bowel distention. 4. Several borderline/mildly prominent retroperitoneal/periaortic and pelvic/common iliac chain lymph nodes bilaterally, see above discussion. 5. Hepatic steatosis. Hepatosplenomegaly, details above. 6. Other findings discussed above. Dictated By: Noe Aj MD Signed By: Noe Aj MD Signed Date/Time: 05/20/21 0143 DD/ 0000 Discharge Plan Discharge Patient Disposition: Home Clinical Impression: Abnormal vaginal bleeding Ovarian cyst Qualifiers: Laterality: right Qualified Code(s): N83.201 - Unspecified ovarian cyst, right side Condition: Stable Prescriptions: New Reglan 10 mg tablet 10 mg PO Q6H PRN (Reason: nausea and vomiting) Qty: 20 RF: 0 Discharge Orders: Discharge ED (Routine); Ordered 05/20/21 Ordered By: Shelbi Kay Referrals: Monique Cloud MD [Physician] - 1-3 days Discharge Diet: Advance as tolerated Discharge Activity: Resume usual activity Patient Instructions: Abnormal (Dysfunctional) Uterine Bleeding (ED) Coding Level of Care Code ED Construction Services Technician for Melidag Alea
[2021-05-19 22:10] VITALS: BP 137/89; PULSE 98; RESP 16; TEMP 37.6; O2SAT 99
[2021-05-19 23:43] LABS: Basophils # 0.1 10^3/uL (0.0-0.1); Basophils % 0.3 %; Eosinophils # 0.4 10^3/uL (0.0-0.8); Hematocrit 31.2 % (37.0-47.0); Hemoglobin 8.8 g/dL (11.5-15.3); Lymphocytes # 3.9 10^3/uL (0.8-4.8); Lymphocytes % 20.8 %; Mean Corpuscular HGB Conc 28.2 g/dL (30.0-36.0); Mean Corpuscular Hemoglobin 18.6 pg (28.0-34.0); Mean Corpuscular Volume 65.8 fl (81-99); Monocytes # 0.7 10^3/uL (0.2-0.9); Monocytes % 3.7 %; Neutrophils # 13.49 10^3/uL (1.8-7.7); Neutrophils % 72.2 %; Nucleated Red Blood Cells % 0.1 %; Platelet Count 698 10^3/cmm (130-400); Red Blood Count 4.74 10^6/uL (4.1-5.3); Red Cell Distribution Width 16.6 % (12.1-15.1); White Blood Count 18.7 10^3/uL (4.0-10.0)
[2021-05-19 23:56] LABS: INR 1.13 (0.8-1.2)
[2021-05-19 23:57] LABS: Partial Thromboplastin Time 32.8 SECONDS (23.9-36.7)
--- NOTE | 2021-05-20 | CTR_ITS ---
PROCEDURE INFORMATION: Exam: CT Abdomen And Pelvis With Contrast Exam date and time: 05/20/2021 12:00 AM Age: 36 years old Clinical indication: Prior surgery; Surgery type: Gb. Lap band. ; Patient HX: Heavy vaginal bleeding x 4 days. Elevated wbc. ; Additional info: Abd pain TECHNIQUE: Imaging protocol: Computed tomography of the abdomen and pelvis with contrast. Radiation optimization: All CT scans at this facility use at least one of these dose optimization techniques: automated exposure control; mA and/or kV adjustment per patient size (includes targeted exams where dose is matched to clinical indication); or iterative reconstruction. Contrast material: OMNI 300; Contrast volume: 95 ml; Contrast route: INTRAVENOUS (IV); COMPARISON: CT abdomen pelvis w con* [id number] 05/15/2019 11:55 AM RADIATION DOSE METRICS: Total DLP (mGy-cm): 1875.21 FINDINGS: Lungs: The lung bases are clear. Liver: There is fatty infiltration of the liver. The liver appears somewhat enlarged, with right lobe length of about 26 cm. No definite/significant focal hepatic abnormality. Gallbladder and bile ducts: Prior cholecystectomy, no significant biliary tree dilation. Pancreas: Unremarkable. Spleen: The spleen appears mildly enlarged, with a length of about 15 cm. No definite/significant focal splenic abnormality or perisplenic fluid. Adrenal glands: Unremarkable. Kidneys and ureters: Unremarkable. Stomach and bowel: No significant bowel distention. There are no CT findings to strongly suggest diverticulitis. Appendix: The appendix is visualized and appears normal. Intraperitoneal space: No free intraperitoneal air, or ascites. Vasculature: No evidence for abdominal aortic aneurysm. Lymph nodes: Several borderline/mildly prominent retroperitoneal/periaortic and pelvic/common iliac chain lymph nodes bilaterally, a nonspecific appearance. The appearance is similar to the prior exam. This may represent reactive lymphadenopathy. Followup may be useful to exclude progression, especially if there is concern for metastatic disease or lymphoma. Urinary bladder: The urinary bladder is almost empty, limiting evaluation. Reproductive: 68 x 57 x 62 mm right adnexal/ovarian cyst. This is larger than expected for a physiologic cyst, although that is not entirely excluded. Other etiologies should be considered/excluded, including ovarian neoplasm such as cystadenoma or cystadenocarcinoma. Appropriate gynecological workup/follow-up recommended. The left ovary appears essentially unremarkable by CT. No cul-de-sac fluid. Bones/joints: No significant acute finding. Soft tissues: No significant acute finding. Other findings: Evidence for prior laparoscopic banding surgery. CT/CT abdomen pelvis w con* [id number] IMPRESSION: 1. 68 x 57 x 62 mm right adnexal/ovarian cyst, see above discussion. Appropriate gynecological workup/follow-up recommended to exclude ovarian neoplasm. 2. Normal appendix. 3. No free air or bowel distention. 4. Several borderline/mildly prominent retroperitoneal/periaortic and pelvic/common iliac chain lymph nodes bilaterally, see above discussion. 5. Hepatic steatosis. Hepatosplenomegaly, details above. 6. Other findings discussed above.
[2021-05-20 00:06] LABS: Alanine Aminotransferase 14 U/L (0-33); Albumin Level 3.6 g/dL (3.5-5.2); Alkaline Phosphatase 112 IU/L (35-105); Anion Gap 16.9 (5-19); Aspartate Amino Transferase 16 U/L (0-32); Blood Urea Nitrogen 7 mg/dL (6-20); Calcium 8.2 mg/dL (8.5-10.5); Carbon Dioxide 24 mmol/L (22-29); Chloride 96 mmol/L (98-107); Glomerular Filtration Rate 114.4 mL/min (90-130); Glucose 136 mg/dL (65-115); Osmolality Calculated 276 mOsm/kg (285-295); Potassium 3.9 mmol/L (3.5-5.1); Sodium 133 mmol/L (136-145); Total Bilirubin 0.3 mg/dL (0.15-1.2); Total Protein 7.6 g/dL (6.6-8.7)
[2021-05-20] MEDS: sodium chloride 0.9% 1,000 ML 999 ML IV (00:37)
[2021-05-20] MEDS: acetaminophen 325 mg Tablet 650 MG PO (00:38)
[2021-05-20] MEDS: iohexol 300 mg/mL 100 mL Btl IV (00:44)
[2021-05-20] MEDS: metoclopramide 5 mg/mL SDV 2 mL 10 MG IVP (01:26)
[2021-05-20] MEDS: diphenhydrAMINE 50 mg/mL SDV 1mL IVP (01:26)
[2021-05-20 02:14] VITALS: BP 145/81; PULSE 98; RESP 16; TEMP 37.2; O2SAT 99
[2021-05-20 02:15] VITALS: BP 145/81; PULSE 98; RESP 16; TEMP 37.2; O2SAT 99
--- NOTE | 2021-05-21 16:07 | DCPLANNER ---
manager critical care unit had message to schedule a follow up appointment for patient with [facility]. manager critical care unit called the [facility], spoke with Claude, gave clinic patients information. manager critical care unit was told that patients information would be printed and reviewed. Clinic will call patient with appointment information.
--- NOTE | 2021-06-01 06:09 | DCPLANNER ---
Patient had a follow up appointment scheduled for 05.25.[address] Arellano at [facility] - patient did attend appointment.
== END 2021-05-20 02:33 | disposition home or self-care (01) ==
PROVIDERS: Emergency Medicine; Emergency Provider Emergency Medicine
DX: N93.9 Abnormal uterine and vaginal bleeding, unspecified (principal); N83.201 Unspecified ovarian cyst, right side; F17.210 Nicotine dependence, cigarettes, uncomplicated
CPT/HCPCS: 74177; 76830; 80053; 85025; 85610; 85730; 86850; 86900; 96361; 96374; 96375; 99284; J1200; J2765; J7030; Q9967

== ENCOUNTER 2021-05-25 11:00 | Outpatient (CLI) | payer MEDICAID, SELFPAY ==
[2021-05-25 11:52] LABS: Estmated Average Glucose 169; Hemoglobin A1C 7.5 % (4.0-6.0)
[2021-05-25 12:03] LABS: Thyroid Stimulating Hormone 3.08 uIU/mL (0.27-4.20)
[2021-05-28 14:22] LABS: Insulin ( Reference Lab Test) 48.9 uIU/mL
== END 2021-05-25 11:01 | disposition home or self-care (01) ==
LOC: LAB 11:05
PROVIDERS: PCP Nurse Practitioner Family; Visit Provider Obstetrics & Gynecology
DX: N93.9 Abnormal uterine and vaginal bleeding, unspecified (principal)
CPT/HCPCS: 36415; 81500; 83036; 83525; 84443; 88305

== ENCOUNTER 2021-09-04 07:36 | Emergency (ER) | payer MEDICAID, SELFPAY ==
[2021-09-04] VITALS (7 sets, daily range): BP systolic 126–161; BP diastolic 70–99; PULSE 84–100; RESP 18–21; TEMP 36.6; O2SAT 98–99; BMI 51.7
--- NOTE | 2021-09-04 08:04 | CT_ITS ---
WS: [id number] CT ABDOMEN PELVIS TECHNIQUE: Contrast-enhanced CT of the abdomen and pelvis with coronal and sagittal reformatted image s. CLINICAL INFORMATION: abd pain COMPARISON: May 20, 2021 DLP: 1822.[address] scans at [facility] use at least one of these dose optimization techniques: automated e xposure control; mA and/or kV adjustment per patient size (includes targeted exams where dose is matc hed to clinical indication); or iterative reconstruction. FINDINGS: Lung bases are well aerated. Hepatomegaly. Diffuse fatty infiltration of the liver. Splenomegaly. Gas tric banding. Normal appendix in the RIGHT lower quadrant. Adrenal glands are normal. Normal renal pa renchymal enhancement. Adrenal glands are normal. No hydronephrosis. Previously described RIGHT adnexal lesion has been resected. Interval hysterectomy. No free fluid or hematoma in the pelvis. Normal sigmoid colon. LEFT ovarian cyst measuring 2.7 x 2.1 cm. Normal calibe r abdominal aorta. A few prominent periaortic lymph nodes are unchanged. CT/CT abdomen pelvis w con* [id number] IMPRESSION: 1. Postoperative changes hysterectomy and resection Right adnexal lesion. 2. No evidence of pelvic hematoma or free fluid. 3. No hydronephrosis in either kidney. 4. Hepatomegaly and splenomegaly. 5. Gastric lap banding. Cholecystectomy clips. 6. A few prominent periaortic lymph nodes unchanged.
--- NOTE | 2021-09-04 08:09 | W.ED.ABDPA2 ---
HPI - Abdominal Pain General: Chief Complaint: Abdominal Pain Stated Complaint: post hysterectoy; pain and passed blood Time Seen by Provider: 09/04/21 07:47 Source: patient Mode of arrival: ambulatory Limitations: no limitations History of Present Illness: 36-year-old female who is approximately 18 days status post laparoscopic-assisted vaginal hysterectomy with right oophorectomy with uterine fibroids and right ovarian mass. She is complaining of pain in the bilateral flank area she had some increased urination as well but no dysuria. pain radiates down into the groin. She is not had any vomiting or diarrhea she is also had some rectal bleeding from an external hemorrhoid that was exacerbated after her surgery. The skin incisions from the laparoscopic procedure are healing well there was some drainage of serous fluid from the supraumbilical incision but there is no redness erythema or purulent drainage or excessive tenderness from the wounds at this time. She has not had any hematuria that she is noted. She had a subjective low-grade fever but does not measured her temperature. MD elicited complaint: abdominal pain Pertinent past history: other (Recent laparoscopic assisted vaginal hysterectomy and right oophorectomy) Onset (ago): day(s) Pain Consistency: constant Location: R flank and Pelvis Severity: moderate Quality: cramping Radiation: none Exacerbating factors: nothing Relieving factors: nothing Associated Symptoms: Reports nausea and poor appetite; Denies anorexia, belching, bloating, change in bowel habits, change in stool character, chills, coffee ground emesis, constipation, GI cramping, diarrhea, dyspepsia, dysuria, excessive flatus, fever(s), heartburn, hematochezia, hematuria, hematemesis, fecal incontinence, loose stools, melena, syncope and vomiting Review of Systems Const: Denies: fever(s) or chills ENMT: Denies: throat pain, ear or mastoid pain, nasal discharge or nasal congestion Card: Denies: syncope Resp: Denies: dyspnea, productive cough or non-productive cough GI: Reports: abdominal pain and nausea; Denies: vomiting, hematemesis, coffee ground emesis, heartburn, diarrhea, constipation, bloating, GI cramping, belching, excessive flatus, fecal incontinence, change in bowel habits, change in stool character, hematochezia or melena : Denies: dysuria or hematuria Skin/Breast: Denies: rash or pruritus [facility] ED PFSH: Medical History (Updated 09/04/21 @ 11:23 by Chris Arnold DO) Morbid obesity Simple endometrial hyperplasia Uterine fibroid Surgical History (Updated 09/04/21 @ 11:23 by Chris Arnold DO) H/O section History of weight loss surgery S/P cholecystectomy S/P tonsillectomy and adenoidectomy Family History Mother Anesthesia complication Bleeding disorder Diabetes Hypertension Thyroid condition Grandfather Bleeding disorder maternal Heart disease maternal Grandmother Bleeding disorder maternal Thyroid condition maternal Breast cancer paternal, 60's Family/Other Bleeding disorder maternal aunt Thyroid condition maternal Sister Thyroid condition Uterine cancer, Onset Age: 17 Ovarian cancer, Onset Age: 19 Denies family history of Colon cancer Hyperlipidemia Stroke Social History Smoking and tobacco status: current every day smoker Physical Exam Const: COMMON NORMALS: no acute distress GENERAL APPEARANCE: cooperative and comfortable ORIENTATION/CONSCIOUSNESS: Yes awake, Yes oriented to person, Yes oriented to place and Yes oriented to time HENMT: COMMON NORMALS: normocephalic, atraumatic and hearing grossly normal bilaterally HEAD & SCALP: normocephalic and atraumatic Resp: COMMON NORMALS: normal respiratory effort, No retractions, No use of accessory muscles and clear to auscultation bilaterally AUSCULTATION: clear to auscultation bilaterally Cardio: COMMON NORMALS: regular rate, regular rhythm and No murmurs present (Cardio) RATE: regular rate RHYTHM: regular rhythm GI: COMMON NORMALS: No hepatosplenomegaly present AUSCULTATION: Yes normoactive bowel sounds PALPATION: Yes Tenderness to palpation present (GI) (Diffuse tenderness), No Guarding due to palpation present (GI) and Yes No hepatosplenomegaly present Extremity: COMMON NORMALS: normal to inspection, capillary refill normal, no clubbing, cyanosis or edema, no calf tenderness and no pedal edema Neuro: SENSORIUM/ORIENTATION: Yes oriented to person, Yes oriented to place and Yes oriented to time Skin: COMMON NORMALS: no rashes or lesions noted GENERAL SKIN EXAM: no rashes or lesions noted Course Vital Signs: Vital signs: Vital Signs Temperature 98 F 09/04/21 07:48 Pulse Rate 94 09/04/21 12:29 Respiratory Rate 18 09/04/21 12:29 Blood Pressure 141/88 09/04/21 12:29 Pulse Oximetry 99 09/04/21 12:29 MDM - Abdominal Pain Medical Decision Making Labs and imaging are good. She is mildly anemic but at her usual baseline. We will go ahead and discharge her home have her follow-up with her surgeon as scheduled. She has been worsening change from return continues [id number] medication for the hemorrhoids. Tramadol given to use as needed. Medical Records I reviewed the patient's medical records. Lab Data I reviewed the patient's lab results. : 09/04/21 08:26 09/04/21 08:26 Labs/Radiology: Radiology Impressions Abdomen/Pelvis CT 09/04/21 08:04 IMPRESSION: 1. Postoperative changes hysterectomy and resection Right adnexal lesion. 2. No evidence of pelvic hematoma or free fluid. 3. No hydronephrosis in either kidney. 4. Hepatomegaly and splenomegaly. 5. Gastric lap banding. Cholecystectomy clips. 6. A few prominent periaortic lymph nodes unchanged. Laboratory Results WBC 12.3 10^3/uL (4.0-10.0) H 09/04/21 08:26 RBC 5.05 10^6/uL (4.1-5.3) 09/04/21 08:26 Hgb 8.4 g/dL (11.5-15.3) L 09/04/21 08:26 Hct 32.2 % (37.0-47.0) L 09/04/21 08:26 MCV 63.8 fl (81-99) L 09/04/21 08:26 MCH 16.6 pg (28.0-34.0) L 09/04/21 08:26 MCHC 26.1 g/dL (30.0-36.0) L 09/04/21 08:26 RDW 20.8 % (12.1-15.1) H 09/04/21 08:26 Plt Count 626 10^3/cmm (130-400) H 09/04/21 08:26 MPV 9.1 fL (7.4-10.4) 09/04/21 08:26 Neut % (Auto) 63.1 % 09/04/21 08:26 Lymph % (Auto) 25.3 % 09/04/21 08:26 [place] % (Auto) 3.6 % 09/04/21 08:26 Eos % (Auto) 6.3 % 09/04/21 08:26 Baso % (Auto) 0.6 % 09/04/21 08:26 Neut # (Auto) 7.77 10^3/uL (1.8-7.7) H 09/04/21 08:26 Lymph # (Auto) 3.1 10^3/uL (0.8-4.8) 09/04/21 08:26 [place] # (Auto) 0.5 10^3/uL (0.2-0.9) 09/04/21 08:26 Eos # (Auto) 0.8 10^3/uL (0.0-0.8) 09/04/21 08:26 Baso # (Auto) 0.1 10^3/uL (0.0-0.1) 09/04/21 08:26 Nucleated RBC % (auto) 0 % 09/04/21 08: Nucleated RBCs # 0.0 /100WBC 09/04/21 08:26 Sodium 133 mmol/L (136-145) L 09/04/21 08:26 Potassium 3.6 mmol/L (3.5-5.1) 09/04/21 08:26 Chloride 100 mmol/L (98-107) 09/04/21 08:26 Carbon Dioxide 21 mmol/L (22-29) L 09/04/21 08:26 Anion Gap 15.6 (5-19) 09/04/21 08:26 BUN 7 mg/dL (6-20) 09/04/21 08:26 Creatinine 0.5 mg/dL (0.5-0.9) 09/04/21 08:26 GFR Calculation 141.2 mL/min (90-130) H 09/04/21 08:26 Glucose 156 mg/dL (65-115) H 09/04/21 08:26 Calculated Osmolality 277 mOsm/kg (285-295) L 09/04/21 08:26 Lactic Acid 2.3 mmol/L (0.5-2.2) H 09/04/21 08:26 Calcium 9.1 mg/dL (8.5-10.5) 09/04/21 08:26 Magnesium 2.1 mg/dL (1.7-2.3) 09/04/21 08:26 Total Bilirubin 0.3 mg/dL (0.15-1.2) 09/04/21 08:26 AST 17 U/L (0-32) 09/04/21 08:26 ALT 14 U/L (0-33) 09/04/21 08:26 Alkaline Phosphatase 118 IU/L (35-105) H 09/04/21 08:26 Creatine Kinase 24 U/L (26-192) L 09/04/21 08:26 Total Protein 7.8 g/dL (6.6-8.7) 09/04/21 08:26 Albumin 3.9 g/dL (3.5-5.2) 09/04/21 08:26 Globulin 3.9 g/dL (1.3-4.6) 09/04/21 08:26 Lipase 13 U/L (13-60) 09/04/21 08:26 Urine Color Yellow (Yellow) 09/04/21 08:31 Urine Appearance Sl hazy (CLEAR) 09/04/21 08:31 Urine pH 5 (5-7) 09/04/21 08:31 Ur Specific [place] 1.010 (1.005-1.030) 09/04/21 08:31 Urine Protein Neg (Negative) 09/04/21 08:31 Urine Glucose (UA) Norm (Normal) 09/04/21 08:31 Urine Ketones Negative (Negative) 09/04/21 08:31 Urine Blood 2+ (Negative) H 09/04/21 08:31 Urine Nitrate Negative (Negative) 09/04/21 08:31 Urine Bilirubin Neg (Negative) 09/04/21 08:31 Urine Urobilinogen Norm mg/dL (Negative) 09/04/21 08:31 Ur Leukocyte Esterase Negative (Negative) 09/04/21 08:31 Urine RBC 0-4 /hpf (0-2) H 09/04/21 08:31 Urine WBC 0-4 /hpf (0-5) H 09/04/21 08:31 Ur Squamous Epith Cells 5-10 /hpf (0-5) H 09/04/21 08:31 Amorphous Sediment Not Reportable 09/04/21 08:31 Urine Bacteria 3+ /hpf (NONE) H 09/04/21 08:31 Discharge Plan Discharge Patient Disposition: Home Clinical Impression: Abdominal pain, Status post laparoscopic hysterectomy, Status post right oophorectomy Condition: Stable Prescriptions: New tramadol 50 mg tablet 50 mg PO Q6H PRN (Reason: pain) Qty: 20 0RF No Action spironolactone 25 mg tablet 25 mg PO BID 0RF ibuprofen 800 mg tablet 800 mg PO Q8H PRN (Reason: pain) Qty: 30 0RF medroxyprogesterone [Provera] 5 mg tablet 5 mg PO DAILY Qty: 40 3RF sertraline [Zoloft] 50 mg tablet 50 mg PO DAILY 0RF alprazolam [Xanax] 1 mg tablet 1 mg PO .PRN 0RF doxycycline hyclate 100 mg tablet 100 mg PO BID 10 Days Qty: 20 0RF metformin 500 mg tablet extended release 24hr 500 mg PO DAILY Qty: 30 12RF Reglan 10 mg tablet 10 mg PO Q6H PRN (Reason: nausea and vomiting) Qty: 20 0RF Discharge Orders: Discharge ED (Routine); Ordered 09/04/21 Ordered By: Chris Arnold Referrals: Piper Collado NP [Primary Care Provider] - Discharge Diet: Usual diet Discharge Activity: Increase activity as tolerated Patient Instructions: Abdominal Pain (ED), Opioid Safety Activity Restrictions/Additional Instructions: Follow-up with your surgeon as previously scheduled. Coding Level of Care Code ED Fiberglass Laminator for Chg Fwd Exam Detailed
[2021-09-04] MEDS: lactated ringers 1,000 ML 999 ML IV ×2 (08:32→09:44)
[2021-09-04] MEDS: ondansetron 2 mg/ML SDV 2 mL 4 MG IVP (08:32)
[2021-09-04] MEDS: morphine 4 mg/mL SDV 1 mL IVP (08:42)
[2021-09-04 08:43] LABS: Basophils # 0.1 10^3/uL (0.0-0.1); Basophils % 0.6 %; Eosinophils # 0.8 10^3/uL (0.0-0.8); Eosinophils % 6.3 %; Hematocrit 32.2 % (37.0-47.0); Hemoglobin 8.4 g/dL (11.5-15.3); Lymphocytes # 3.1 10^3/uL (0.8-4.8); Lymphocytes % 25.3 %; Mean Corpuscular HGB Conc 26.1 g/dL (30.0-36.0); Mean Corpuscular Hemoglobin 16.6 pg (28.0-34.0); Mean Corpuscular Volume 63.8 fl (81-99); Mean Platelet Volume 9.1 fL (7.4-10.4); Monocytes # 0.5 10^3/uL (0.2-0.9); Monocytes % 3.6 %; Neutrophils # 7.77 10^3/uL (1.8-7.7); Neutrophils % 63.1 %; Nucleated Red Blood Cells % 0 %; Platelet Count 626 10^3/cmm (130-400); Red Blood Count 5.05 10^6/uL (4.1-5.3); Red Cell Distribution Width 20.8 % (12.1-15.1); White Blood Count 12.3 10^3/uL (4.0-10.0)
[2021-09-04 08:53] LABS: Add Urine Culture? Yes; Add Urine Microscopic? YES; Bacteria Urine 3+ /hpf; Bilirubin Urine Neg (Negative); Blood Urine 2+ (Negative); Glucose Urine UA Norm (Normal); Ketones Urine Negative (Negative); Leukocyte Esterase Urine Negative (Negative); Nitrate Urine Negative (Negative); Protein Urine Neg (Negative); RBC Urine 0-4 /hpf (0-2); Urine Appearance SL Hazy (CLEAR); Urine Color Yellow (Yellow); Urobilinogen Urine Norm (Negative); WBC Urine 0-4 /hpf (0-5); pH Urine 5 (5-7)
[2021-09-04 08:56] LABS: Lactic Sepsis W/Reflex 2.3 mmol/L (0.5-2.2)
[2021-09-04] MEDS: iohexol 350 mg/mL 100 mL Btl IV (09:06)
[2021-09-04 09:07] LABS: Alanine Aminotransferase 14 U/L (0-33); Albumin Level 3.9 g/dL (3.5-5.2); Alkaline Phosphatase 118 IU/L (35-105); Anion Gap 15.6 (5-19); Aspartate Amino Transferase 17 U/L (0-32); Blood Urea Nitrogen 7 mg/dL (6-20); Calcium 9.1 mg/dL (8.5-10.5); Carbon Dioxide 21 mmol/L (22-29); Chloride 100 mmol/L (98-107); Creatine Phosphokinase 24 U/L (26-192); Globulin 3.9 g/dL (1.3-4.6); Glomerular Filtration Rate 141.2 mL/min (90-130); Glucose 156 mg/dL (65-115); Lipase 13 U/L (13-60); Magnesium 2.1 mg/dL (1.7-2.3); Osmolality Calculated 277 mOsm/kg (285-295); Potassium 3.6 mmol/L (3.5-5.1); Sodium 133 mmol/L (136-145); Total Bilirubin 0.3 mg/dL (0.15-1.2); Total Protein 7.8 g/dL (6.6-8.7)
[2021-09-04 10:23] LABS: Reflex Lactate Order REFLEX LACTIC ORDERD
== END 2021-09-04 12:31 | disposition home or self-care (01) ==
PROVIDERS: Emergency Provider Family Medicine; PCP Nurse Practitioner Family
DX: R10.9 Unspecified abdominal pain (principal); F17.200 Nicotine dependence, unspecified, uncomplicated; E66.01 Morbid (severe) obesity due to excess calories; Z68.43 Body mass index [BMI] 50.0-59.9, adult; Z90.710 Acquired absence of both cervix and uterus; Z90.721 Acquired absence of ovaries, unilateral
CPT/HCPCS: 74177; 80053; 81001; 82550; 83605; 83690; 83735; 85025; 87086; 96361; 96374; 96375; 99284; J2270; J2405; Q9967

== ENCOUNTER 2022-02-04 00:18 | Emergency (ER) | payer MEDICAID, SELFPAY ==
--- NOTE | 2022-02-04 00:25 | XRR_ITS ---
PROCEDURE INFORMATION: Exam: XR Left Knee Exam date and time: 02/04/2022 12:32 AM Age: 36 years old Clinical indication: Injury or trauma; Fall; Blunt trauma; Knee; Right TECHNIQUE: Imaging protocol: Radiologic exam of the Left knee. Views: 3 views. COMPARISON: No relevant prior studies available. FINDINGS: Bones/joints: Normal. Soft tissues: Normal. XR/XR knee LT 3V* [id number] IMPRESSION: No acute findings.
--- NOTE | 2022-02-04 00:25 | XRR_ITS ---
PROCEDURE INFORMATION: Exam: XR Skull Exam date and time: 02/04/2022 12:36 AM Age: 36 years old Clinical indication: Injury or trauma; Fall; Blunt trauma (contusions or hematomas); Additional info: Left parietal hematoma TECHNIQUE: Imaging protocol: XR of the skull. Views: Minimum of 4 views. COMPARISON: No relevant prior studies available. FINDINGS: Sinuses: Well aerated. No opacification. Bones/joints: No fracture. Soft tissues: Unremarkable. XR/XR skull <4V [id number] IMPRESSION: Unremarkable.
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
[2022-02-04 00:33] VITALS: BP 154/87; PULSE 94; RESP 20; TEMP 36.7; O2SAT 96; BMI 52.0
[2022-02-04 00:37] VITALS: BP 147/86; RESP 20; O2SAT 98
[2022-02-04] MEDS: HYDROcodone-acetaminophen 7.5-325 mg Tablet 1 TAB PO (01:00)
== END 2022-02-04 01:08 | disposition home or self-care (01) ==
PROVIDERS: Emergency Provider Nurse Practitioner Family; PCP Nurse Practitioner Family
DX: S80.02XA Contusion of left knee, initial encounter (principal); S00.03XA Contusion of scalp, initial encounter; Z79.84 Long term (current) use of oral hypoglycemic drugs; F17.210 Nicotine dependence, cigarettes, uncomplicated; Y04.2XXA Assault by strike against or bumped into by another person, initial encounter
CPT/HCPCS: 29530; 70250; 73562; 99283; E0114